=== PATIENT | female | born 1970 | race Caucasian/White ===

== ENCOUNTER 2017-08-03 17:41 | Emergency (ER) | payer OTHER ==
[~2017-08-03] VITALS: Ht 154.9 cm; Wt 51.7 kg
[2017-08-03 17:44] VITALS: BP 152/82
--- NOTE | 2017-08-03 18:21 | RADIOLOGY REPORT ---
EXAMINATION: XR TIBIA AND FIBULA, RIGHT XR ANKLE, RIGHT XR FOOT, RIGHT CLINICAL INFORMATION: Twisting injury with pain and swelling. COMPARISON: None TECHNIQUE: AP and lateral views of the right tibia and fibula were obtained. 2 views of the right leg. 3 views of the right foot. FINDINGS: No acute fracture or dislocation is seen. The ankle mortise is intact. There is mild lateral ankle soft tissue swelling. The imaged knee joint is grossly unremarkable but not targeted for evaluation. No ankle joint effusion is seen. The joint spaces are otherwise maintained elsewhere. IMPRESSION: Mild lateral ankle soft tissue swelling. Preservation of the ankle mortise. No fracture or dislocation in the right leg, right ankle, or right foot. No visible joint effusion.
[2017-08-03] MEDS ORDERED: IBUPROFEN800 M1 PO (18:37)
--- NOTE | 2017-08-03 18:37 | ED ANKLE/FOOT INJURY COMPLAINT ---
History of Present Illness General Chief Complaint: Foot or Ankle Injury Stated Complaint: R FOOT PAIN Source: patient Exam Limitations: no limitations Vital Signs & Intake/Output Vital Signs & Intake/Output Vital Signs Date Time Temp Pulse Resp B/P B/P Pulse O2 O2 Flow FiO2 Mean Ox Delivery Rate 08/03 1744 96.4 77 20 152/82 96 Room Air Allergies Coded Allergies: No Known Allergies (08/03/17) Reconcile Medications Ibuprofen 800 MG TABLET 1 TAB PO TID pain Triage Note: PT TO ED C/O RIGHT ANKLE/FOOT PAIN SINCE YESTERDAY. STATES SHE MISSED A STEP COMING OFF A STEP STOOL AND ROLLED HER ANKLE. LAST DOSE MOTRIN 800 MG AT 1530. 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 Triage Nurses Notes Reviewed? yes Duration: day(s): (1), constant, continues in ED Timing: recent history Severity: moderate, severe Pain/Injury Location: Right: Foot, Ankle. Method of Injury: twisted No Modifying Factors: none HPI: 46-year-old female comes into the emergency room for further evaluation of her ankle and right foot pain. Increased swelling and pain. Patient reports that she was stepping off of a step stool yesterday and twisted and rolled her right ankle. She reports that the pain is increased today and she comes in for further evaluation. Denies any other associated symptoms or trauma. (Roger Quan) Past History Travel History Traveled to [place] past 21 day No Medical History Any Pertinent Medical History? see below for history Psychiatric: anxiety Surgical History Surgical History: non-contributory Psychosocial History What is your primary language Filipino Tobacco Use: Quit >30 days ago ETOH Use: denies use Illicit Drug Use: denies illicit drug use Family History Hx Contributory? No (Roger Quan) Review of Systems Review of Systems Constitutional: Reports: no symptoms. EENTM: Reports: no symptoms. Respiratory: Reports: no symptoms. Cardiovascular: Reports: no symptoms. GI: Reports: no symptoms. Genitourinary: Reports: no symptoms. Musculoskeletal: Reports: see HPI. Skin: Reports: no symptoms. Neurological/Psychological: Reports: no symptoms. Hematologic/Endocrine: Reports: no symptoms. Immunologic/Allergic: Reports: no symptoms. All Other Systems: Reviewed and Negative (Roger Quan) Physical Exam Physical Exam General Appearance: well developed/nourished, mild distress Head: atraumatic Eyes: Bilateral: normal appearance. Ears, Nose, Throat: normal ENT inspection, hearing grossly normal Neck: normal inspection Cardiovascular/Respiratory: no respiratory distress Back: normal inspection Leg/Knee/Thigh Left: normal inspection Leg/Knee/Thigh Right: normal inspection Ankle Right: soft tissue tenderness, swelling, tenderness, limited range of motion Foot Right: limited range of motion, soft tissue tenderness Neuro/Vascular: normal motor function, normal sensation Tendon: normal tendon function Psychiatric: awake, alert, oriented x 3 Skin: intact, normal color, warm/dry Diagram Feet Left/Right: 1) (Kenn SANTOS,Roger) Progress Differential Diagnosis: fracture, dislocation, sprain, contusion Plan of Care: Orders Procedure Date/time Status Durable Medical Equipment 08/03 1837 Active Diagnostic Imaging: Viewed by Me: Radiology Read. Discussed w/RAD: Radiology Read. Radiology Impression: PATIENT: PARVEEN BRANNON PRESENT AGE: 46 PATIENT ACCOUNT NO: [id number] : 70 LOCATION: [facility] ORDERING PHYSICIAN: Roger SANTOS SERVICE DATE: 08/03/17 EXAM TYPE : RAD - XRY-ANKLE 3 OR MORE VIEWS R; XRY-FOOT COMPLETE, R; [id number], RIGHT EXAMINATION: XR TIBIA AND FIBULA, RIGHT XR ANKLE, RIGHT XR FOOT, RIGHT CLINICAL INFORMATION: Twisting injury with pain and swelling. COMPARISON: None TECHNIQUE: AP and lateral views of the right tibia and fibula were obtained. 2 views of the right leg. 3 views of the right foot. FINDINGS: No acute fracture or dislocation is seen. The ankle mortise is intact. There is mild lateral ankle soft tissue swelling. The imaged knee joint is grossly unremarkable but not targeted for evaluation. No ankle joint effusion is seen. The joint spaces are otherwise maintained elsewhere. IMPRESSION: Mild lateral ankle soft tissue swelling. Preservation of the ankle mortise. No fracture or dislocation in the right leg, right ankle, or right foot. No visible joint effusion. DICTATED BY: Daniel Monte MD DATE/TIME DICTATED:08/03/171811 TAR HEEL:JENNIFER DATE/TIME TRANSCRIBED:08/03/171811 CONFIDENTIAL, DO NOT COPY WITHOUT APPROPRIATE AUTHORIZATION. <Electronically signed in Other Vendor System> SIGNED BY: Daniel Monte MD 08/03/17 3908 (Roger Quan) Departure Departure Disposition: HOME OR SELF CARE Condition: Stable Clinical Impression Primary Impression: Right ankle sprain Referrals: Antonieta CHOUDHARY,Tisha Olivo (PCP/Family) Rajiv CHOUDHARY,Deandre Nicholson Additional Instructions: Ice. Rest. Motrin for pain. Elevation. Follow-up with orthopedic doctor provided if not better in 3-5 days. If symptoms do not improve you'll require further evaluation with possible repeat x-rays as well as evaluation by customer resolution specialist. Sprains can last anywhere from days to weeks. No high impact running or jumping if you have an ankle sprain or any type of lower extremity sprain. Return to normal activity only after symptoms have resolved. Please go over all results of today's visit with your primary care doctor. Contact your primary care doctor to let them know you were here in the emergency room. There may be nonspecific findings which may not be related to your visit today here in the emergency room but may require further evaluation and chronic monitoring by your primary care doctor. If you had a laceration today the chance of foreign body always remains. You should follow-up with your primary care doctor for recheck in 3-5 days for a wound check. If you had an x-ray done there is a chance that a fracture could have been missed on initial read and you should follow-up with your primary care doctor for repeat x-rays if symptoms persist. If your blood pressure was elevated here in the emergency room please have rechecked by the [facility] primary care doctor within the next 48. If you were prescribed a narcotic here in the emergency room or any type of controlled substances you're not allowed to drive while taking this medication or operate any type of heavy machinery. Narcotics can make you feel lightheaded dizziness nausea and can cause constipation. You may need to machine operator picker a stool softener. Thank you for choosing [facility] emergency room. Please return to the emergency room immediately if you have any other concerns worsening of symptoms. Departure Forms: Customer Survey General Discharge Information Prescriptions: Current Visit Scripts Ibuprofen 1 TAB PO TID #30 TAB Ref 1 (Roger Quan) PA/WAGON WINDER Co-Sign Statement Statement: ED Attending supervision documentation- [] I saw and evaluated the patient. I have also reviewed all the pertinent lab results and diagnostic results. I agree with the findings and the plan of care as documented in the PA's/WAGON WINDER's documentation. [X] I have reviewed the ED Record and agree with the PA's/WAGON WINDER's documentation. [] Additions or exceptions (if any) to the PAs/WAGON WINDER's note and plan are summarized below: [] (Huy CHOUDHARY,Daniel Saldana) Procedures Splinting Location: RIGHT FOOT Manual Alignment Performed: No Pre-Made Type: PNEUMATIC BOOT Splint: PNEUMATIC BOOT Splint Applied By: splint applied by me Pre-Proc Neuro Vasc Exam: normal Post-Proc Neuro Vasc Exam: normal (Roger Quan)
[2017-11-26] MEDS ORDERED: XANAX0.25 M1 PO (20:29)
[2017-11-26] MEDS ORDERED: CYANOCOBAL1000 MCG/2 IM (20:30)
[2017-11-26] MEDS ORDERED: ZOFRAN ODT4 M1 SL (22:40)
[2017-11-26] MEDS ORDERED: OMEPRAZOLE20 M3 PO (22:40)
== END 2017-08-03 18:53 ==
LOC: ERH 17:41
DX: S93.401A Sprain of unspecified ligament of right ankle, initial encounter (principal); X58.XXXA Exposure to other specified factors, initial encounter; Y92.9 Unspecified place or not applicable; Y93.9 Activity, unspecified
CPT/HCPCS: 73590-RT; 73610-RT; 73630-RT